=== PATIENT | male | born 1995 | race American Indian/Alaskan Native ===

== ENCOUNTER 2019-01-07 15:59 | Emergency (ER) | payer OTHER ==
[2019-01-07 16:12] VITALS: BP 114/72
--- NOTE | 2019-01-07 16:13 | Emergency Department Report ---
Chief Complaint: Abdominal Pain Stated Complaint: LOWER ABD PAIN Time Seen by Provider: 01/07/19 16:11 - HPI History of Present Illness: This is a 23 y.o. male that presents with diffuse abdominal pain for 2-3 days. Denies urinary frequency, urgency, dysuria, n/v/d, or penile discharge. - Exam Vital Signs: Vital Signs 01/07/19 16:11 Temperature 98.0 F Pulse Rate 76 Respiratory 20 Rate Blood Pressure 114/72 O2 Sat by Pulse 100 Oximetry MSE screening note: Focused history and physical exam performed. Due to findings the following was ordered: Labs ACC for further evaluation. ED Disposition for MSE Condition: Stable
[2019-01-07 16:53] LABS: Basophils % (Auto) 0.9 % (0.0-1.8); Eosinophils # (Auto) 0.2 K/mm3 (0.0-0.4); Eosinophils % (Auto) 5.4 % (0.0-4.3); Hematocrit 44.3 % (35.5-45.6); Hemoglobin 14.5 gm/dl (11.8-15.2); Lymphocytes # (Auto) 1.1 K/mm3 (1.2-5.4); Lymphocytes % (Auto) 26.2 % (13.4-35.0); Mean Corpuscular HGB Conc 33 % (32-34); Mean Corpuscular Volume 84 fl (84-94); Monocytes # (Auto) 0.3 K/mm3 (0.0-0.8); Monocytes % (Auto) 7.9 % (0.0-7.3); Platelet Count 183 K/mm3 (140-440); Red Blood Count 5.29 M/mm3 (3.65-5.03)
[2019-01-07 16:55] LABS: Bilirubin,Urine NEG (Negative); Blood,Urine NEG (Negative); Color,Urine Straw (Yellow); Protein,Urine <15 mg/dL mg/dL (Negative); RBC,Urine < 1.0 /HPF (0.0-6.0); Urobilinogen,Urine < 2.0 mg/dL (<2.0); WBC,Urine < 1.0 /HPF (0.0-6.0)
[2019-01-07 17:21] LABS: Alanine Aminotransferase 10 units/L (7-56); Albumin 4.7 g/dL (3.9-5); BUN/Creatinine Ratio 10; Blood Urea Nitrogen 7 mg/dL (9-20); Calcium 9.7 mg/dL (8.4-10.2); Hemolysis Index 20
[2019-01-07] MEDS ORDERED: ALUM-MAG HYDROX-SIMETH 200-200-20MG/5ML PO ONE (20:25)
[2019-01-07] MEDS ORDERED: BENTYL PO ONE (20:25)
[2019-01-07] MEDS ORDERED: LIDOCAINE VISCOUS 2% PO ONE (20:25)
[2019-01-07] MEDS ORDERED: TORADOL IV ONE (20:25)
--- NOTE | 2019-01-07 21:41 | Emergency Department Report ---
ED Abdominal Pain HPI - General Chief Complaint: Abdominal Pain Stated Complaint: LOWER ABD PAIN Time Seen by Provider: 01/07/19 16:11 Source: patient Mode of arrival: Ambulatory Limitations: No Limitations - History of Present Illness Initial Comments: Pt is a 23 yo male who presents to the ED with c/o epigastric abd pain that began at 10 AM this morning. He describes the pain as a cramping and sharp pain. He states that the pain self resolved and has no pain currently. He denies any back pain, dysuria, penile pain, penile discharge, testicular pain, testicular edema, hematuria, fever, or N/V/D. He states he had a normal BM yesterday. He denies having this previously. He denies any PMHx or past abdominal surgeries. Pt states he did drink approximately half a gallon of orange juice last night. Severity scale (0 -10): 5 - Related Data Previous Rx's Medication Instructions Recorded Last Taken Type Dicyclomine [Bentyl] 10 mg PO DAILY #14 capsule 01/07/19 Unknown Rx Famotidine [Pepcid] 20 mg PO DAILY #30 tablet 01/07/19 Unknown Rx Simethicone [Gas-X] 62.5 mg PO DAILY #1 strip 01/07/19 Unknown Rx Allergies Allergy/AdvReac Type Severity Reaction Status Date / Time No Known Allergies Allergy Unverified 01/07/19 16:02 ED Review of Systems ROS: Stated complaint: LOWER ABD PAIN Other details as noted in HPI Comment: All other systems reviewed and negative ED Past Medical Hx - Past Medical History Previous Medical History?: No - Surgical History Past Surgical History?: No - Social History Smoking Status: Current Every Day Smoker Substance Use Type: Alcohol, Marijuana - Medications Home Medications: Home Medications Medication Instructions Recorded Confirmed Last Taken Type Dicyclomine [Bentyl] 10 mg PO DAILY #14 capsule 01/07/19 Unknown Rx Famotidine [Pepcid] 20 mg PO DAILY #30 tablet 01/07/19 Unknown Rx Simethicone [Gas-X] 62.5 mg PO DAILY #1 strip 01/07/19 Unknown Rx ED Physical Exam - General Limitations: No Limitations General appearance: alert, in no apparent distress - Head Head exam: Present: atraumatic, normocephalic - Eye Eye exam: Present: normal appearance - ENT ENT exam: Present: mucous membranes moist - Respiratory Respiratory exam: Present: normal lung sounds bilaterally. Absent: respiratory distress, wheezes, rales, rhonchi, stridor, chest wall tenderness, accessory muscle use, decreased breath sounds, prolonged expiratory - Cardiovascular Cardiovascular Exam: Present: regular rate, normal rhythm, normal heart sounds. Absent: systolic murmur, diastolic murmur, rubs, gallop - GI/Abdominal GI/Abdominal exam: Present: soft, normal bowel sounds. Absent: distended, t enderness, guarding, rebound, rigid, organomegaly, mass, bruit - Back Exam Back exam: Absent: CVA tenderness (R), CVA tenderness (L) - Neurological Exam Neurological exam: Present: alert, oriented X3 - Psychiatric Psychiatric exam: Present: normal affect, normal mood - Skin Skin exam: Present: warm, dry, intact ED Course Vital Signs 01/07/19 01/07/19 16:11 21:15 Temperature 98.0 F Pulse Rate 76 Respiratory 20 14 Rate Blood Pressure 114/72 O2 Sat by Pulse 100 Oximetry ED Medical Decision Making - Lab Data Result diagrams: 01/07/19 16:36 01/07/19 16:36 Lab Results 01/07/19 01/07/19 01/07/19 Range/Units 16:34 16:36 16:36 WBC 4.0 L (4.5-11.0) K/mm3 RBC 5.29 H (3.65-5.03) M/mm3 Hgb 14.5 (11.8-15.2) gm/dl Hct 44.3 (35.5-45.6) % MCV 84 (84-94) fl MCH 27 L (28-32) pg MCHC 33 (32-34) % RDW 13.0 L (13.2-15.2) % Plt Count 183 (140-440) K/mm3 Lymph % (Auto) 26.2 (13.4-35.0) % [place] % (Auto) 7.9 H (0.0-7.3) % Eos % (Auto) 5.4 H (0.0-4.3) % Baso % (Auto) 0.9 (0.0-1.8) % Lymph # 1.1 L (1.2-5.4) K/mm3 [place] # 0.3 (0.0-0.8) K/mm3 Eos # 0.2 (0.0-0.4) K/mm3 Baso # 0.0 (0.0-0.1) K/mm3 Seg Neutrophils % 59.6 (40.0-70.0) % Seg Neutrophils # 2.4 (1.8-7.7) K/mm3 Sodium 136 L (137-145) mmol/L Potassium 4.2 (3.6-5.0) mmol/L Chloride 99.4 (98-107) mmol/L Carbon Dioxide 24 (22-30) mmol/L Anion Gap 17 mmol/L BUN 7 L (9-20) mg/dL Creatinine 0.7 L (0.8-1.5) mg/dL Estimated GFR > 60 ml/min BUN/Creatinine Ratio 10 % Glucose 88 (75-100) mg/dL Calcium 9.7 (8.4-10.2) mg/dL Total Bilirubin 0.70 (0.1-1.2) mg/dL AST 18 (5-40) units/L ALT 10 (7-56) units/L Alkaline Phosphatase 108 (35-129) units/L Total Protein 7.8 (6.3-8.2) g/dL Albumin 4.7 (3.9-5) g/dL Albumin/Globulin Ratio 1.5 % Lipase 9 L (13-60) units/L Urine Color Straw (Yellow) Urine Turbidity Clear (Clear) Urine pH 9.0 H (5.0-7.0) Ur Specific [place] 1.009 (1.003-1.030) Urine Protein <15 mg/dl (Negative) mg/dL Urine Glucose (UA) Neg (Negative) mg/dL Urine Ketones Tr (Negative) mg/dL Urine Blood Neg (Negative) Urine Nitrite Neg (Negative) Urine Bilirubin Neg (Negative) Urine Urobilinogen < 2.0 (<2.0) mg/dL Ur Leukocyte Esterase Neg (Negative) Urine WBC (Auto) < 1.0 (0.0-6.0) /HPF Urine RBC (Auto) < 1.0 (0.0-6.0) /HPF Vital Signs 01/07/19 01/07/19 16:11 21:15 Temperature 98.0 F Pulse Rate 76 Respiratory 20 14 Rate Blood Pressure 114/72 O2 Sat by Pulse 100 Oximetry - Medical Decision Making Pt is a 23 yo male who presents to the ED with c/o epigastric abd pain that began at 10 AM this morning. He describes the pain as a cramping and sharp pain. He states that the pain self resolved and has no pain currently. He denies any back pain, dysuria, penile pain, penile discharge, testicular pain, testicular edema, hematuria, fever, or N/V/D. He states he had a normal BM yesterday. He denies having this previously. He denies any PMHx or past abdominal surgeries. labs are stable, no leukocytosis, no elevated lipase. physical examination is benign, no abd tenderness to palpation, normal bowel sounds. Pt given medications while in the ED and has no symptoms at all. Given history and examination findings most consistent with a gastritis/gerd. Will give patient bentyl, pepcid, and gas x. Will have pt follow up with his PCP in the next 2-3 days. Discussed in detail with patient to return to the emergency room for any new or worsening symptoms. - Differential Diagnosis gastrititis, gerd, pancreatitis, gas pain Critical care attestation.: If time is entered above; I have spent that time in minutes in the direct care of this critically ill patient, excluding procedure time. ED Disposition Clinical Impression: Abdominal pain Qualifiers: Abdominal location: epigastric Qualified Code(s): R10.13 - Epigastric pain GERD (gastroesophageal reflux disease) Qualifiers: Esophagitis presence: esophagitis presence not specified Qualified Code(s): K21.9 - Gastro-esophageal reflux disease without esophagitis Disposition: TO HOME OR SELFCARE Is pt being admited?: No Does the pt Need Aspirin: No Condition: Stable Instructions: Diet for Ulcers and Gastritis (ED), Gastroesophageal Reflux Disease (ED) Additional Instructions: Please follow up with your primary care doctor in the next 2-3 days. Take medication as prescribed. Please follow diet as written on discharge paperwork. Drink plenty of fluids. Return to the emergency room for any new or worsening symptoms. Prescriptions: Dicyclomine [Bentyl] 10 mg PO DAILY #14 capsule Simethicone [Gas-X] 62.5 mg PO DAILY #1 strip Famotidine [Pepcid] 20 mg PO DAILY #30 tablet Referrals: DEANNA LONG MD [Primary Care Provider] - 2-3 Days Forms: Accompanied Note, Work/School Release Form(ED) Time of Disposition: 21:38 Print Language: OCCITAN
== END 2019-01-07 21:55 | disposition home or self-care (01) ==
LOC: ED 15:59
DX: K21.9 Gastro-esophageal reflux disease without esophagitis (principal); F17.200 Nicotine dependence, unspecified, uncomplicated; F12.90 Cannabis use, unspecified, uncomplicated
CPT/HCPCS: 36415; 80053; 81001; 83690; 85025; 96374; 99284; J1885